=== PATIENT | male | born 2000 | race Caucasian/White ===

== ENCOUNTER → 2022-01-02 | Outpatient (CLI) | payer MEDICAID ==
--- NOTE | 2022-01-02 11:48 | CA ---
Exercise Stress Test Report Name: Geovany Law Exam Date: 01/02/2022 09:19 Exam Location: [facility] Ht (in): 72 Wt (lb): 190 BSA: 2.08 Ordering Phys: Nayla Sandoval MD Referring Phys: Tisha Vega [facility] Technologist: Nikolai Cruz Age: 21 Gender: M : 2000 Procedure CPT: Indications: R07.9 CHEST PAIN ICD-10 Codes: Patient History: Chest pain, palpitations, family hx of heart disease Medications: Multivitamins Meds past 24 hrs: Pretest Chest Pain: STRESS TEST Bobby Protocol Exercise Duration (min:sec): 14:[address] Depressions (mm): Angina Score: Mi Score: Resting HR (bpm): 68 Peak HR (bpm): 171 Resting BP (mmHg): 129 / 64 Peak BP (mmHg): 209 / 66 MPHR: 198 Target HR: 168 % MPHR: 86 METS: 14.9 Total Dose: Peak Dose: Atropine: Double Product: 61542 BP Response: Stress Termination: Reached target heart rate Stress Symptoms: Chest Tightness "2" at max exertion Stress Summary: ECG ANALYSIS Resting ECG: Stress ECG: CONCLUSIONS Baseline heart rate 84 beats a minute, Baseline blood pressure 129/64 mmHg Baseline 12-lead EKG shows sinus rhythm with [address] elevation inferolaterally consistent with early repolarization abnormality The patient exercised on a Bobby protocol for 40 minutes 20 seconds achieving a peak heart rate of 167 beats a minute. Peak blood pressure 209/66 mmHg He complained of chest tightness There was no ECG evidence for ischemia Normalization of ST segments was noted as expected No arrhythmias noted Impression normal stress test with good exercise capacity chest discomfort was not associated with any abnormalities Dr. Eulalio Phillip MD (Electronically Signed) Final Date: 02 Jan 2022 11:47
--- NOTE | 2022-01-02 11:50 | CA ---
Transthoracic Echo Report Name: Geovany Law Age: 21 Gender: M : 2000 Exam Date: 01/02/2022 08:32 Exam Location: [facility] Ht (in): 72 Wt (lb): 190 Ordering Physician: Nayla Sandoval MD Attending/Referring Phys: Tisha Vega [facility] Manager Multimedia Radha Sanchez, ROWAN Procedure CPT: Indications: R07.9 CHEST PAIN Cardiac Hx: Famili Hx of heart disease Technical Quality: Good Contrast 1: Total Dose (mL): Contrast 2: Total Dose (mL): MEASUREMENTS (Male / Female) Normal Values 2D ECHO LV Diastolic Diameter PLAX 4.5 cm 4.2 - 5.9 / 3.9 - 5.3 cm LV Systolic Diameter PLAX 2.6 cm IVS Diastolic Thickness 1.1 cm 0.6 - 1.0 / 0.6 - 0.9 cm LVPW Diastolic Thickness 1.0 cm 0.6 - 1.0 / 0.6 - 0.9 cm LV Relative Wall Thickness 0.5 RV Internal Dim ED PLAX 3.5 cm LA Systolic Diameter LX 2.8 cm 3.0 - 4.0 / 2.7 - 3.8 cm LA Volume 49.1 cm??? 18 - 58 / 22 - 52 cm??? M-MODE Aortic Root Diameter MM 2.9 cm MV E Point Septal Separation 0.3 cm AV Cusp Separation MM 2.5 cm DOPPLER AV Peak Velocity 153.9 cm/s AV Peak Gradient 9.5 mmHg MV Area PHT 2.5 cm??? Mitral E Point Velocity 97.6 cm/s Mitral A Point Velocity 61.6 cm/s Mitral E to A Ratio 1.6 MV Deceleration Time 308.2 ms MV E' Velocity 12.9 cm/s Mitral E to MV E' Ratio 7.5 TR Peak Velocity 231.1 cm/s TR Peak Gradient 21.4 mmHg Right Ventricular Systolic Press 26.4 mmHg FINDINGS Left Ventricle Left ventricular ejection fraction is estimated at 60-65 %. Normal Left ventricular size, wall thickness, systolic function with no obvious regional wall motion abnormalities. Normal Left ventricular diastolic filling pattern. Right Ventricle Mild right ventricular dilatation. Right ventricular systolic pressure within normal limits. Right Atrium Normal right atrial size. Left Atrium Normal left atrial size. Mitral Valve Trace to mild mitral regurgitation. Elongation of the anterior mitral valve leaflet. Aortic Valve Trileaflet aortic valve. No aortic valve stenosis or regurgitation. Tricuspid Valve Trace to mild tricuspid regurgitation. Pulmonic Valve Structurally normal pulmonic valve. Pericardium Thickened posterior pericardium Aorta Normal size aortic root and proximal ascending aorta. CONCLUSIONS Normal LV systolic function Prominent posterior pericardial stripe Previewed by: Dr. Eulalio Phillip MD (Electronically Signed) Final Date: 02 Jan 2022 11:49
== END | disposition home or self-care (01) ==
LOC: RADECHMAIN 08:14
PROVIDERS: ATTEND Family Medicine
DX: R07.9 Chest pain, unspecified (principal)
CPT/HCPCS: 93017; 93306